=== PATIENT | male | born 1955 | race Caucasian/White ===

== ENCOUNTER 2020-01-29 23:21 | Inpatient (IN) | payer OTHER ==
[~2020-01-29] VITALS: Ht 190.5 cm; Wt 105.8 kg
[2020-01-29 23:25] VITALS: BP_SYST 165
--- NOTE | 2020-01-29 23:25 | NUR ---
Placed in room 1 . Placed on air box tester, blood pressure machine and pulse oximeter. To gown for exam. Side rails up. Report given to PACO KIRK.
--- NOTE | 2020-01-29 23:35 | NUR ---
Pt. presents to the ED ambulatory with c/o of SOB x3 days. He is A&O x4. Patient denies n/v/d and is afebrile. Pt. reports dry cough and orthopnea. Crackles heard upon auscultation to the right posterior base.
--- NOTE | 2020-01-29 23:48 | NUR ---
# 20 gauge angiocath placed to rac. Use of asceptic technique. Opsite placed over site. Blood return noted. Blood for lab drawn from site. Flushed with 10 cc of normal saline. No evidence of infiltration noted. Patient tolerated well.
--- NOTE | 2020-01-29 23:49 | NUR ---
EKG performed at BS by LIN Gómez. Physician given copy of EKG for review.
--- NOTE | 2020-01-29 23:50 | NUR ---
Radiology at bedside for chest x ray
[2020-01-30 00:20] LABS: BASOPHILS % (AUTO) 0.5 % (0.0-2.0); EOSINOPHILS # (AUTO) 0.1 K/uL (0.0-0.4); EOSINOPHILS % (AUTO) 1.5 % (0.0-4.0); HEMATOCRIT 43.9 % (36-54); HEMOGLOBIN 14.6 g/dL (14.0-18.0); LYMPHOCYTES # (AUTO) 1.2 K/uL (1.0-5.5); MEAN CORPUSCULAR HEMOGLOBIN 31 pg (27-31); MEAN CORPUSCULAR HGB CONC 33 % (32-36); MEAN CORPUSCULAR VOLUME 93 fL (79.0-98.0); MONOCYTES # (AUTO) 0.6 K/uL (0.0-1.0); MONOCYTES % (AUTO) 8.4 % (1.7-9.3); NEUTROPHILS # (AUTO) 5.7 K/uL (1.8-7.7); NEUTROPHILS % (AUTO) 73.6 % (40.0-70.0); PLATELET COUNT (AUTO) 176 K/uL (130-430); RED BLOOD CELL COUNT(AUTO) 4.74 MIL/uL (4.2-6.2); RED CELL DISTRIBUTION WIDTH 13.4 % (9.0-15.0); WHITE BLOOD COUNT (AUTO) 7.7 K/uL (4.8-10.8)
[2020-01-30 00:28] LABS: CALCIUM 8.7 mg/dL (8.4-11.0); CREATININE 1.23 mg/dL (0.55-1.30); POTASSIUM 4.3 mmol/L (3.5-5.1)
[2020-01-30 00:37] LABS: ALBUMIN 3.7 g/dL (3.4-4.8); TOTAL BILIRUBIN 0.6 mg/dL (0.0-1.0)
--- NOTE | 2020-01-30 00:40 | NUR ---
CRITICAL LAB VALUE TROPONIN 0.083 NOTIFIED
[2020-01-30] MEDS ORDERED: ASPIRIN 81 MG TAB.CHEW PO ONE (01:15)
[2020-01-30] MEDS ORDERED: FUROSEMIDE 20 MG/2 ML VIAL IVP ONE (01:30)
[2020-01-30] MEDS ORDERED: ASPIRIN 81 MG TAB.CHEW ONE (01:40)
[2020-01-30] MEDS ORDERED: EMPA10TA PO (01:50)
--- NOTE | 2020-01-30 02:35 | NUR ---
Critical lab value; Troponin 0.091. notified.
--- NOTE | 2020-01-30 02:40 | NUR ---
Medication reconciliation completed with information provided by Pt. Any prior medication reconciliation on file was reviewed and corrected.
[2020-01-30] MEDS ORDERED: FUROSEMIDE 40 MG/4 ML VIAL IVP ONE (02:45)
[2020-01-30] MEDS ORDERED: ACETAMINOPHEN 325 MG TABLET PO PRN (02:45)
[2020-01-30] MEDS ORDERED: ACETAMINOPHEN 650 MG/20.3 ML UDC PO ONE (02:45)
--- NOTE | 2020-01-30 02:50 | NUR ---
Pt. states he is full code. Paperwork in chart.
--- NOTE | 2020-01-30 02:50 | NUR ---
Patient will be admitted to care of Dr Boswell. Admitted to Telemetry unit. Will go to room 100B. Belongings list completed. Complete and up to date summary report printed. SBAR report to be given at bedside with opportunity for questions.
--- NOTE | 2020-01-30 03:03 | NUR ---
ADMISSION: The patient, GAURAV GUTIERREZ, 64 y/o, M admitted by DR JARA , with the diagnosis of CHF exacerbation ,elevated troponin , to room 100 B
--- NOTE | 2020-01-30 03:05 | NUR ---
OPENING NOTES PATIENT AWAKE AOX4. NO SIGNS OF RESPIRATORY DISTRESS AND DISCOMFORT NOTED. NEEDS ATTENDED. CALL LIGHT WITHIN REACH. PATIENT WAS EDUCATED ON PROPER USE OF CALL LIGHT, PATIENT VERBALIZED AND DEMONSTRATED THE PROPER USE OF CALL LIGHT. SAFETY PRECAUTIONS IN PLACE. VITAL SIGNS TAKEN AND RECORDED. WILL CONTINUE TO MONITOR PATIENT.
[2020-01-30 03:13] VITALS: BP_SYST 139
[2020-01-30] MEDS ORDERED: FUROSEMIDE 40 MG/4 ML VIAL ONE (03:14)
--- NOTE | 2020-01-30 03:40 | NUR ---
MEDICATION DUE MEDICATION GIVEN AT THIS TIME. PATIENT WAS EDUCATED ON PURPOSE, SIDE EFFECT AND BENEFITS OF THE MEDICATION. PATIENT VERBALIZED UNDERSTANDING. CALL LIGHT WITHIN REACH. SAFETY PRECAUTIONS IN PLACE. WILL CONTINUE TO MONITOR PATIENT.
--- NOTE | 2020-01-30 05:26 | NUR ---
CONSULTATION PAGED/CALLED Reason for Consultation: NSTEMI Person Who was Notified: JUAN JOSE Consulting Physician: DEBRA Central Services Tech Specialty:CARDIO Ordering Physician: ESTEFANI
[2020-01-30] MEDS: INSULIN LISPRO SLIDING SCALE 100 UNITS/ML VIAL (humaLOG) SUBCUT PRN ×3 (06:09→21:29)
--- NOTE | 2020-01-30 06:20 | NUR ---
CLOSING NOTES/ BS 178 PATIENT WENT BACK TO SLEEP AT THIS TIME. NO SIGNS OF RESPIRATORY DISTRESS AND DISCOMFORT NOTED. BS WAS CHECKED BS 178, 2 UNITS OF HUMALOG WAS GIVEN. PATIENT WAS EDUCATED ON PURPOSE, SIDE EFFECT AND BENEFITS OF INSULIN HUMALOG, PATIENT VERBALIZED UNDERSTANDING. DENIES PAIN AND DISCOMFORT AT THIS TIME. IV SITE, PATENCY NOTED. CALL LIGHT WITHIN REACH. BED LOCKED AND IN LOWEST POSITION. BED ALARM ON. ALL NEEDS MET THROUGHOUT THE SHIFT. SAFETY PRECAUTIONS IN PLACE. WILL CONTINUE TO MONITOR UNTIL ENDORSED TO ONCOMING SHIFT NURSE FOR CONTINUITY OF CARE.
--- NOTE | 2020-01-30 07:50 | NUR ---
Dr. Florentino rounds assessed patient at beside, will follow up with any new orders.
--- NOTE | 2020-01-30 08:00 | NUR ---
Opening note patient resting in bed, a/ox4, denies pain, assessment complete, IV line is patent and infusing well, educated the patient prescription clerk lenses light system and plan of care, he verbalized understanding, bed in lowest position, two side rails up, call light within reach, fall and aspiration precautions in place.
[2020-01-30 08:04] VITALS: BP_SYST 134
[2020-01-30] MEDS: ASPIRIN 81 MG TAB.CHEW PO SCH (08:35)
[2020-01-30] MEDS: FAMOTIDINE 20 MG TABLET PO SCH (08:35)
[2020-01-30] MEDS: FUROSEMIDE 40 MG TABLET PO SCH (08:35)
[2020-01-30] MEDS: LOSARTAN POTASSIUM 50 MG TABLET (COZAAR) PO SCH (08:35)
[2020-01-30] MEDS: SPIRONOLACTONE 25 MG TABLET (ALDACTONE) PO SCH (08:36)
[2020-01-30] MEDS: CARVEDILOL 6.25 MG TABLET (COREG) PO SCH ×2 (08:36→21:24)
[2020-01-30] MEDS: THIAMINE HCL 100 MG TABLET PO SCH (08:42)
[2020-01-30] MEDS: FOLIC ACID 1 MG TABLET PO SCH (08:42)
--- NOTE | 2020-01-30 08:45 | NUR ---
Medication patient resting in bed, awake, denies pain, educated on scheduled medications uses and potential side effects, patient verbalized understanding and tolerated well, no other needs at this time, bed in lowest position, two side rails up, call light within reach, fall and aspiration precautions in place.
[2020-01-30] MEDS ORDERED: ASPIRIN 81 MG TABLET(ECOTRIN) PO SCH (09:00)
--- NOTE | 2020-01-30 11:20 | NUR ---
Rounds/Medication patient resting in bed, awake, denies pain, blood glucose checked and insulin coverage provided per MD orders, patient tolerated well, no other needs at this time, continuing to monitor the patient, bed in lowest position, two side rails up, call light within reach, fall and aspiration precautions in place.
[2020-01-30 12:31] VITALS: BP_SYST 103
[2020-01-30] MEDS ORDERED: metFORMIN HCL 500 MG TABLET PO SCH (13:15)
--- NOTE | 2020-01-30 14:00 | NUR ---
Transfer of Care to Marlen KIRK.
--- NOTE | 2020-01-30 14:02 | NUR ---
RESUME CARE Received report from Abhishek RN. Patient resting in the bed. No acute distress. Denied of pain. Skin warm and dry to touch. SL intact to RAC, no redness, no swelling, patent. Safety measure maintained. Call light within reached. Bed locked in low position, side rails up. Continue to monitor.
[2020-01-30] MEDS: metFORMIN HCL 500 MG TABLET PO ONE ×2 (14:30→17:06)
--- NOTE | 2020-01-30 16:15 | NUR ---
DR. MOREAU, ERUM Seen and examined by Dr. Moreau. Reported to Dr. Moreau, the Metformin initial dose not given yet due to patient ate at that time. Will give before dinner. Dr. Moreau state "that's fine".
--- NOTE | 2020-01-30 17:14 | NUR ---
QT=[id number] No insulin coverage needed per sliding scale. Safety measure maintained. Call light within reached. Bed locked in low position, side rails up. Continue to monitor.
--- NOTE | 2020-01-30 17:20 | NUR ---
PATIENT REFUSED METFORMIN, PER PATIENT HE TOOK BEFORE AND CAUSE BAD DIARRHEA. CALLED DR. JARA AND WAITED TO CALL BACK.
[2020-01-30 17:22] VITALS: BP_SYST 119
--- NOTE | 2020-01-30 18:31 | NUR ---
CLOSING NOTE Patient resting in the bed. No acute distress. Denied of pain. Skin warm and dry to touch. SL intact to RAC, no redness, no swelling, patent. All needs met. Safety measure maintained. Bed locked in low position, side rails up. Call light within reached. Will endorse to night nurse.
--- NOTE | 2020-01-30 19:20 | NUR ---
OPENING NOTES PATIENT AWAKE, WATCHING TV, AOX4. NO SIGNS OF RESPIRATORY DISTRESS AND DISCOMFORT NOTED. DENIES PAIN AND SOB AT THIS TIME. VITAL SIGNS TAKEN AND RECORDED. CALL LIGHT WITHIN REACH. PATIENT WAS EDUCATED TO USE CALL LIGHT WHEN ASSISTANCE IS NEEDED. IV SITE, PATENCY NOTED. PATIENT VERBALIZED UNDERSTANDING. SAFETY PRECAUTIONS IN PLACE. WILL CONTINUE TO MONITOR PATIENT.
[2020-01-30 20:00] VITALS: BP_SYST 111
[2020-01-30] MEDS ORDERED: metFORMIN HCL 500 MG TABLET PO ONE (20:00)
--- NOTE | 2020-01-30 21:24 | NUR ---
MED PASS/ BS 191 DUE MEDICATION GIVEN AT THIS TIME. PATIENT WAS EDUCATED ON PURPOSE, SIDE EFFECT AND BENEFITS OF THE MEDICATION. PATIENT VERBALIZED UNDERSTANDING. BS [id number], 2UNITS OF HUMALOG WAS GIVEN FOR COVERAGE, PATIENT WAS EDUCATED. CALL LIGHT WITHIN REACH. SAFETY PRECAUTIONS IN PLACE. NEEDS ATTENDED. WILL CONTINUE TO MONITOR PATIENT.
[2020-01-30] MEDS: chlordiazePOXIDE HCL 25 MG CAPSULE PO SCH (21:27)
--- NOTE | 2020-01-30 23:56 | NUR ---
RN ROUNDS PATIENT ASLEEP AT THIS TIME. NO SIGNS OF RESPIRATORY DISTRESS AND DISCOMFORT NOTED. BREATHING EVEN AND UNLABORED. ON ROOM AIR TOLERATING WELL. CALL LIGHT WITHIN REACH. SAFETY PRECAUTIONS IN PLACE. WILL CONTINUE TO MONITOR PATIENT.
[2020-01-31 00:26] VITALS: BP_SYST 125
--- NOTE | 2020-01-31 04:39 | NUR ---
RN ROUNDS PATIENT AWAKE AND ASK FOR SNACKS. NO SIGNS OF RESPIRATORY DISTRESS AND DISCOMFORT NOTED. DENIES PAIN AND DISCOMFORT. BREATHING EVEN AND UNLABORED. ON ROOM AIR TOLERATING WELL. CALL LIGHT WITHIN REACH. SAFETY PRECAUTIONS IN PLACE. NEEDS ATTENDED. WILL CONTINUE TO MONITOR PATIENT.
[2020-01-31] MEDS: INSULIN LISPRO SLIDING SCALE 100 UNITS/ML VIAL (humaLOG) SUBCUT PRN ×3 (06:02→17:25)
--- NOTE | 2020-01-31 06:24 | NUR ---
CLOSING NOTES/ BS 178 PATIENT ASLEEP AT THIS TIME. NO SIGNS OF RESPIRATORY DISTRESS AND DISCOMFORT NOTED. BS WAS CHECKED BS 189 AT 0600, 2 UNITS OF HUMALOG WAS GIVEN. PATIENT WAS EDUCATED ON PURPOSE, SIDE EFFECT AND BENEFITS OF INSULIN HUMALOG, PATIENT VERBALIZED UNDERSTANDING. DENIES PAIN AND DISCOMFORT UPON ASSESSMENT. IV SITE, PATENCY NOTED. CALL LIGHT WITHIN REACH. BED LOCKED AND IN LOWEST POSITION. BED ALARM ON. ALL NEEDS MET THROUGHOUT THE SHIFT. SAFETY PRECAUTIONS IN PLACE. WILL CONTINUE TO MONITOR UNTIL ENDORSED TO ONCOMING SHIFT NURSE FOR CONTINUITY OF CARE.
[2020-01-31 06:46] LABS: BASOPHILS % (AUTO) 0.6 % (0.0-2.0); EOSINOPHILS # (AUTO) 0.2 K/uL (0.0-0.4); EOSINOPHILS % (AUTO) 2.6 % (0.0-4.0); HEMATOCRIT 46.4 % (36-54); HEMOGLOBIN 15.4 g/dL (14.0-18.0); LYMPHOCYTES # (AUTO) 1.2 K/uL (1.0-5.5); LYMPHOCYTES % (AUTO) 16.2 % (20.5-51.5); MEAN CORPUSCULAR HEMOGLOBIN 31 pg (27-31); MEAN CORPUSCULAR HGB CONC 33 % (32-36); MEAN CORPUSCULAR VOLUME 92 fL (79.0-98.0); MONOCYTES # (AUTO) 0.7 K/uL (0.0-1.0); MONOCYTES % (AUTO) 8.8 % (1.7-9.3); NEUTROPHILS # (AUTO) 5.5 K/uL (1.8-7.7); NEUTROPHILS % (AUTO) 71.8 % (40.0-70.0); PLATELET COUNT (AUTO) 197 K/uL (130-430); RED BLOOD CELL COUNT(AUTO) 5.02 MIL/uL (4.2-6.2); RED CELL DISTRIBUTION WIDTH 13.2 % (9.0-15.0); WHITE BLOOD COUNT (AUTO) 7.7 K/uL (4.8-10.8)
[2020-01-31 06:56] LABS: ALBUMIN 3.6 g/dL (3.4-4.8); CALCIUM 8.7 mg/dL (8.4-11.0); CREATININE 1.07 mg/dL (0.55-1.30); POTASSIUM 3.6 mmol/L (3.5-5.1); THYROID STIMULATING HORMONE 3.21 uIu/mL (0.34-4.82); TOTAL BILIRUBIN 0.9 mg/dL (0.0-1.0)
--- NOTE | 2020-01-31 07:10 | NUR ---
Received patient and endorsed report. In no acute distress. Patient sleeping in bed side rails x 3 up. Call light with in reach. Breathing even and unlabored.
[2020-01-31 08:00] VITALS: BP_SYST 118
--- NOTE | 2020-01-31 09:10 | NUR ---
Patient awake, alert, oriented eating breakfast. Side rails x 3 up. Call light with in reach. In no acute distress. Breathing even and unlabored. Denies pain.
[2020-01-31] MEDS: FAMOTIDINE 20 MG TABLET PO SCH (09:19)
[2020-01-31] MEDS: SPIRONOLACTONE 25 MG TABLET (ALDACTONE) PO SCH (09:19)
[2020-01-31] MEDS: ASPIRIN 81 MG TAB.CHEW PO SCH (09:20)
[2020-01-31] MEDS: LOSARTAN POTASSIUM 50 MG TABLET (COZAAR) PO SCH (09:20)
[2020-01-31] MEDS: FUROSEMIDE 40 MG TABLET PO SCH (09:20)
[2020-01-31] MEDS: CARVEDILOL 6.25 MG TABLET (COREG) PO SCH ×2 (09:21→21:26)
[2020-01-31] MEDS: THIAMINE HCL 100 MG TABLET PO SCH (09:21)
[2020-01-31] MEDS: FOLIC ACID 1 MG TABLET PO SCH (09:21)
--- NOTE | 2020-01-31 11:10 | NUR ---
Patient awake, alert, oriented. Side rails x 3 up. Call light with in reach. In no acute distress. Breathing even and unlabored. Denies pain.
--- NOTE | 2020-01-31 11:31 | NUR ---
Discharge Planning Received a call from Dr Florentino that a LifeVest needed to be ordered for patient. Received a call from Jewel Pa with [employer], p [phone] f [phone]. He requested order, H&P, echo,cardio notes, and facesheet. I faxed those to him and called. He will fax an order that needs to be signed by Dr Florentino. Addendum: 01/31/20 at 1233 by Ijeoma Ruiz LCSW I put the order in the chart to be signed. Jewel called and stated that Dr Florentino would not be back to sign the order. The hospitalist can sign. Will put another order in the chart once the form is emailed to me. Addendum: 01/31/20 at 1333 by Ijeoma Ruiz LCSW Order placed in chart to be signed. Notified MT. Wilmar
[2020-01-31 12:10] VITALS: BP_SYST 104
--- NOTE | 2020-01-31 13:10 | NUR ---
Patient awake, alert, oriented eating lunch. Side rails x 3 up. Call light with in reach. In no acute distress. Breathing even and unlabored. Denies pain.
--- NOTE | 2020-01-31 15:10 | NUR ---
Patient awake, alert, oriented. Side rails x 3 up. Call light with in reach. In no acute distress. Breathing even and unlabored. Denies pain.
[2020-01-31 16:15] VITALS: BP_SYST 108
--- NOTE | 2020-01-31 16:57 | NUR ---
Md Keller paged regarding troponin drawn today result 0.078.
--- NOTE | 2020-01-31 16:59 | NUR ---
MD Keller paged back, no new orders.
--- NOTE | 2020-01-31 17:10 | NUR ---
Patient in bed with side rails x 3 up. Sitter at bedside. Call light with in reach. Denies pain. Breathing even and unlabored on room air. In no acute distress.
[2020-01-31] MEDS ORDERED: metFORMIN HCL 500 MG TABLET PO SCH (18:00)
--- NOTE | 2020-01-31 19:22 | NUR ---
Endorsed patient and report to oncoming shift nurse. Patient in bed with side rails x 3 up. Sitter at bedside. Call light with in reach. Denies pain. Breathing even and unlabored on room air. In no acute distress.
[2020-01-31 20:00] VITALS: BP_SYST 159
--- NOTE | 2020-01-31 20:00 | NUR ---
INITIAL NOTE RECEIVED PT AWAKE, AOX4. IN BED WATCHING TV. NO COMPLAINTS OF PAIN OR DISCOMFORT. DAIRY CLERK IN PLACE. RESPIRATIONS EVEN AND UNLABORED ON ROOM AIR. CALL LIGHT WITHIN REACH. DEMONSTRATED PROPER USE OF CALL LIGHT, PATIENT VERBALIZED UNDERSTANDING. SAFETY MEASURES IN PLACE. BED IN LOWEST POSITION. BED ALARM ON. WILL CONTINUE TO MONITOR.
[2020-01-31] MEDS: chlordiazePOXIDE HCL 25 MG CAPSULE PO SCH (21:26)
--- NOTE | 2020-01-31 21:30 | NUR ---
PAIN MEDS PATIENT REPORTS PAIN TO RIGHT ARM, STATES HE INJURED HIS ARM IN THE PAST AND IT CONTINUES TO BOTHER HIM. WILL MEDICATED AND MONITOR FOR EFFECTIVENESS.
--- NOTE | 2020-02-01 00:05 | NUR ---
ROUNDS PATIENT RESTING IN BED WITH EYES CLOSED. NO SIGNS OF DISTRESS NOTED. CALL LIGHT REMAINS WITHIN REACH.
[2020-02-01 00:27] VITALS: BP_SYST 104
--- NOTE | 2020-02-01 03:55 | NUR ---
ROUNDS AWAKE WATCHING TV, PATIENT DENIES PAIN AT THIS TIME. NO ADDITIONAL NEEDS AT THIS TIME.
[2020-02-01] MEDS: INSULIN LISPRO SLIDING SCALE 100 UNITS/ML VIAL (humaLOG) SUBCUT PRN (06:25)
--- NOTE | 2020-02-01 06:30 | NUR ---
CLOSING NOTE ACCUCHECK 241 WITH INSULIN COVERAGE GIVEN, PATIENT TOLERATED. PT REMAINS IN BED RESTING COMFORTABLY. SAFETY MEASURES REMAIN IN PLACE. CALL LIGHT WITHIN REACH. WILL CONTINUE TO MONITOR UNTIL ENDORSED TO AM NURSE. ALL PATIENT NEEDS MET THROUGHOUT SHIFT.
[2020-02-01 07:12] LABS: CALCIUM 8.5 mg/dL (8.4-11.0); CREATININE 0.96 mg/dL (0.55-1.30); POTASSIUM 3.3 mmol/L (3.5-5.1)
--- NOTE | 2020-02-01 07:20 | NUR ---
Received report from NOC shift nurse and endorsed patient. In no acute distress. Denies pain. Breathing even and unlabored on room air. Call light with in reach.
[2020-02-01 08:00] VITALS: BP_SYST 110
[2020-02-01] MEDS ORDERED: GLIMEPIRIDE 2 MG TABLET PO SCH (08:00)
[2020-02-01] MEDS ORDERED: POTASSIUM CHLORIDE 10 MEQ TAB.PRT.SR PO ONE (09:00)
--- NOTE | 2020-02-01 09:20 | NUR ---
Assessed patient. Patient sitting in bed eating breakfast, side rails up. In no acute distress. Denies pain. Breathing even and unlabored on room air. Call light with in reach.
[2020-02-01] MEDS: FUROSEMIDE 40 MG TABLET PO SCH (09:30)
[2020-02-01] MEDS: CARVEDILOL 6.25 MG TABLET (COREG) PO SCH (09:30)
[2020-02-01] MEDS: FAMOTIDINE 20 MG TABLET PO SCH (09:30)
[2020-02-01] MEDS: FOLIC ACID 1 MG TABLET PO SCH (09:30)
[2020-02-01] MEDS: THIAMINE HCL 100 MG TABLET PO SCH (09:30)
[2020-02-01] MEDS: ASPIRIN 81 MG TAB.CHEW PO SCH (09:31)
[2020-02-01] MEDS: LOSARTAN POTASSIUM 50 MG TABLET (COZAAR) PO SCH (09:31)
[2020-02-01] MEDS: SPIRONOLACTONE 25 MG TABLET (ALDACTONE) PO SCH (09:31)
--- NOTE | 2020-02-01 11:20 | NUR ---
Assessed patient. Patient sitting in bed watching TV, side rails up. In no acute distress. Denies pain. Breathing even and unlabored on room air. Call light with in reach.
[2020-02-01 11:31] VITALS: BP_SYST 110
[2020-02-01 12:15] VITALS: BP_SYST 117
--- NOTE | 2020-02-01 12:33 | NUR ---
Patient refused insulin for lunch, stated will not eat lunch at hospital. Educated patient pros and cons and offered insulin x 3. Went over discharge summary and education with patient and gave copy to patient, patient signed original form. Gave patient prescription provided by Md Boswell. Went over belongings list with patient, patient to take all belongings home. Instructed patient to follow up with PCP with in this week with medical records and blood sugar log. Answered all questions by patient. Revmoved portable tele with leads, arm band, and IV insertion. Patient to wear life vest and continue jardiance at home. Walked patient outside to private automobile and at front of hospital. Patient stated thank you for care. Patient left building at 1220.
--- NOTE | 2020-02-02 18:48 | NUR ---
out patient follow up patient refused for automobile mechanic radiator to call for his appointment within 7 days of discharge.
== END 2020-02-01 12:20 | disposition home or self-care (01) | DRG 292 ==
LOC: SED 23:21 → STU 01-30 02:42
PROVIDERS: ADMIT Internal Medicine; ATTEND Internal Medicine
DX: I50.21 Acute systolic (congestive) heart failure (principal); I24.8 Other forms of acute ischemic heart disease; I42.0 Dilated cardiomyopathy; I42.6 Alcoholic cardiomyopathy; I25.10 Atherosclerotic heart disease of native coronary artery without angina pectoris; F10.20 Alcohol dependence, uncomplicated; J44.9 Chronic obstructive pulmonary disease, unspecified; N18.2 Chronic kidney disease, stage 2 (mild); E11.22 Type 2 diabetes mellitus with diabetic chronic kidney disease; E11.65 Type 2 diabetes mellitus with hyperglycemia; Z79.84 Long term (current) use of oral hypoglycemic drugs; Z82.49 Family history of ischemic heart disease and other diseases of the circulatory system; Z87.01 Personal history of pneumonia (recurrent); Z87.891 Personal history of nicotine dependence
CPT/HCPCS: 36415; 71045; 80048; 80053; 80061; 82962; 83735-TC; 83880; 84443-TC; 84484; 85025; 85379; 93005; 93306; 96374; 99291; G0378; J1940